=== PATIENT | female | born 1955 | race African-American/Black ===

== ENCOUNTER → 2020-07-30 | Outpatient (CLI) | payer OTHER ==
--- NOTE | 2020-07-30 12:09 | RAD ---
EXAM: Lumbar spine, 2 views. HISTORY: Pain. COMPARISON: None. FINDINGS: 2 views of the lumbar spine are obtained. There is no listhesis. The vertebral bodies are normal in height. There is mild multilevel endplate remodeling. There is cholelithiasis. IMPRESSION: 1. Mild multilevel degenerative change. 2. No acute osseous finding. 3. Cholelithiasis. Electronically signed by: Rita Grover MD (07/30/2020 12:06 PM) [id number]
== END ==
LOC: RAD 09:41
PROVIDERS: ATTEND Family Medicine
DX: M47.816 Spondylosis without myelopathy or radiculopathy, lumbar region (principal); K80.20 Calculus of gallbladder without cholecystitis without obstruction
CPT/HCPCS: 72100